=== PATIENT | male | born 2000 ===

== ENCOUNTER 2019-01-24 20:55 | Emergency (ER) | payer BC ==
--- NOTE | 2019-01-24 20:59 | UC ---
Skin Complaint HPI - HPI Summary HPI Summary: 18 yo male presents with skin complaint. He tells me that around 1999 this evening he was sitting in class and noticed a blue discoloration to the tips of his fingers b/l. Has never had this issue in the past. Since that time the color has improved to baseline with only a faint blueish hue. He had/has no pain or other symptoms. Denies recent illness. he does not smoke. Denies any PMH. No medications. - History of Current Complaint Stated Complaint: BLUE FINGER TIPS Hx Obtained From: Patient Onset/Duration: Sudden Onset Current Severity: None - Allergy/Home Medications Allergies/Adverse Reactions: Allergies Allergy/AdvReac Type Severity Reaction Status Date / Time No Known Allergies Allergy Verified 01/24/19 21:13 Home Medications: Home Medications NK [No Home Medications Reported] 01/24/19 [History Confirmed 01/24/19] PMH/Surg Hx/FS Hx/Imm Hx - Additional Past Medical History Additional PMH: None - Surgical History Surgical History: None - Family History Known Family History: Positive: None - Social History Occupation: Student Lives: Dormitory/Roommates Alcohol Use: None Substance Use Type: None Smoking Status (MU): Never Smoked Tobacco Review of Systems All Other Systems Reviewed And Are Negative: No Constitutional: Positive: Negative Skin: Positive: Other - Discoloration to fingertips Eyes: Positive: Negative ENT: Positive: Negative Respiratory: Positive: Negative Cardiovascular: Positive: Negative Gastrointestinal: Positive: Negative Neurovascular: Positive: Negative Neurological: Positive: Negative Psychological: Positive: Negative Physical Exam - Summary Physical Exam Summary: GENERAL: NAD. WDWN. No pain distress. SKIN: Very faint blueish hue to distal fingertips bilaterally. NTTP. No wounds NECK: Supple. Nontender. No lymphadenopathy. CHEST: No accessory muscle use. Breathing comfortably and in no distress. CV: Pulses intact. Cap refill <2seconds all fingers NEURO: Alert. PSYCH: Age appropriate behavior. Triage Information Reviewed: Yes Vital Signs: Vital Signs: Temp Pulse Resp BP Pulse Ox 98.7 F 93 16 168/89 98 01/24/19 21:09 01/24/19 21:09 01/24/19 21:09 01/24/19 21:09 01/24/19 21:09 Vital Signs Reviewed: Yes Course/Dx - Course Course Of Treatment: Suspect episode of raynaud's. Will draw for CBC, CMP, and TSH to evaluate for underlying abnormality. Advised supportive care. Recommend f/u with [facility] for lab review and recheck. - Diagnoses Provider Diagnosis: Raynaud phenomenon Discharge ED - Sign-Out/Discharge Documenting (check all that apply): Patient Departure All imaging exams completed and their final reports reviewed: No Studies - Discharge Plan Condition: Stable Disposition: HOME Patient Education Materials: Raynaud Disease (ED) Referrals: Gene Oakes PA [Medical Doctor] - Additional Instructions: If you develop a fever, shortness of breath, chest pain, new or worsening symptoms - please call your PCP or go to the ED immediately. Your blood pressure was high at todays visit. Please see your primary provider within 4 weeks for recheck and re-evaluation. Please follow up with [facility] regarding your lab results - Billing Disposition and Condition Condition: STABLE Disposition: Home
[2019-01-24 21:13] VITALS: BP 168/89
[2019-01-25 13:38] LABS: ABS Basophils 0.1 10^3/ul (0-0.2); ABS Eosinophils 0.2 10^3/ul (0-0.6); ABS Lymphocytes 2.3 10^3/ul (1.0-4.8); ABS Monocytes 0.7 10^3/ul (0-0.8); ABS Neutrophils 4.8 10^3/ul (1.5-7.7); Eosinophil % 1.9 %; Hematocrit 45 % (42-52); Hemoglobin 15.2 g/dL (14.0-18.0); Lymphocyte % 28.4 %; Mean Corpuscular HGB Conc 34 g/dL (31-36); Mean Corpuscular Hemoglobin 33 pg (27-31); Mean Corpuscular Volume 96 fL (80-94); Mean Platelet Volume 10.6 fL (7.4-10.4); Nucleated Red Blood Cells % 0.1; Platelet Count 261 10^3/uL (150-450); Red Blood Count 4.66 10^6 /uL (4.18-5.48); Red Cell Distribution Width 13 % (10-15); White Blood Count 8.1 10^3/uL (3.5-10.8)
[2019-01-25 13:49] LABS: Calcium 10.3 mg/dL (8.6-10.3); Total Bilirubin 0.3 mg/dL (0.2-1.0)
[2019-01-25 13:55] LABS: BUN/Creatinine Ratio 13.5 (8-20); EGFR African American 164.9 (>60); EGFR Non-African American 136.3 (>60); Globulin 2.5 g/dL (2-4); Total Protein 7.5 g/dL (6.4-8.9)
[2019-01-25 14:31] LABS: TSH (Thyroid Stimulating Horm) 1.53 mcIU/mL (0.34-5.60)
--- NOTE | 2019-01-26 08:55 | UC ---
- Progress Note Progress Note: CBC, CMP, TSH GROSSLY UNREMARKABLE. NO CHANGE IN MANAGEMENT. Course/Dx - Diagnoses Provider Diagnoses: Raynaud phenomenon Discharge ED - Sign-Out/Discharge Documenting (check all that apply): Post-Discharge Follow Up All imaging exams completed and their final reports reviewed: No Studies - Discharge Plan Condition: Stable Disposition: HOME Patient Education Materials: Raynaud Disease (ED) Referrals: Gene Oakes PA [Medical Doctor] - Additional Instructions: If you develop a fever, shortness of breath, chest pain, new or worsening symptoms - please call your PCP or go to the ED immediately. Your blood pressure was high at todays visit. Please see your primary provider within 4 weeks for recheck and re-evaluation. Please follow up with [facility] regarding your lab results - Billing Disposition and Condition Condition: STABLE Disposition: Home
== END 2019-01-24 21:45 | disposition home or self-care (01) ==
LOC: UCEAST 20:55
DX: I73.00 Raynaud's syndrome without gangrene (principal)
CPT/HCPCS: 36415; 80053; 84443; 85025; 99211; G0463